=== PATIENT | male | born 1945 | race Caucasian/White ===

== ENCOUNTER 2021-12-14 10:47 | Outpatient (CLI) | payer MEDICARE, OTHER, SELFPAY ==
[2021-12-14 22:08] LABS: Albumin* 4.4 g/dL (3.3-5.0); Chloride* 103 mmol/L (96-114); Sodium* 138 mmol/L (135-149)
[2021-12-14 22:09] LABS: Potassium* 5.1 mmol/L (3.6-5.1)
[2021-12-14 22:10] LABS: Carbon Dioxide* 29 mmol/L (20-32); Cholesterol* 208 mg/dL (90-199); Creatinine* 1.2 mg/dL (0.5-1.5); Estimated Glomerular Filt Rate 63 ml/min
[2021-12-14 22:11] LABS: Alanine Aminotransferase* 28 U/L (4-50); Alkaline Phosphatase* 122 U/L (40-150); Aspartate Amino Transferase* 27 U/L (12-35); Bilirubin Total* 0.3 mg/dL (0.1-1.5); Blood Urea Nitrogen* 20 mg/dL (7-30); Calcium* 9.6 mg/dL (8.4-10.6); Glucose* 148 mg/dL (60-115); HDL Cholesterol* 37 mg/dL (>=40); LDL Cholesterol Calculated 103 mg/dL (<100); Total Protein* 7.1 g/dL (6.0-8.3); Triglycerides* 342 mg/dL (40-149)
[2021-12-14 22:47] LABS: Hepatitis C Virus Antibody* Negative (Negative)
== END 2021-12-14 10:48 | disposition home or self-care (01) ==
PROVIDERS: PCP Family Medicine; Visit Provider Family Medicine
DX: Z00.00 Encounter for general adult medical examination without abnormal findings (principal); E78.5 Hyperlipidemia, unspecified; I10 Essential (primary) hypertension; Z11.59 Encounter for screening for other viral diseases
CPT/HCPCS: 80053; 80061; 86803

== ENCOUNTER 2021-12-29 14:42 | Outpatient (CLI) | payer MEDICARE, OTHER, SELFPAY ==
[2021-12-29 21:38] LABS: Total Protein Urine 8 mg/dL
[2021-12-29 21:44] LABS: Creatinine Urine 48.9 mg/dL; Microalbumin Urine < 1 mg/dL
[2021-12-29 22:45] LABS: Microalbumin Creatinine Ratio 0 mg/g (0-30)
== END 2021-12-29 14:43 | disposition home or self-care (01) ==
PROVIDERS: PCP Family Medicine; Visit Provider Family Medicine
DX: E11.9 Type 2 diabetes mellitus without complications (principal)
CPT/HCPCS: 82043; 82570; 84156

== ENCOUNTER 2022-03-24 10:06 | Outpatient (CLI) | payer MEDICARE, SELFPAY ==
[2022-03-24 15:13] LABS: Albumin* 4.5 g/dL (3.3-5.0); Chloride* 106 mmol/L (96-114); Sodium* 141 mmol/L (135-149)
[2022-03-24 15:15] LABS: Bilirubin Total* 0.7 mg/dL (0.1-1.5); Carbon Dioxide* 30 mmol/L (20-32); Cholesterol* 181 mg/dL (90-199); Creatinine* 1.1 mg/dL (0.5-1.5); Estimated Glomerular Filt Rate 70 ml/min
[2022-03-24 15:16] LABS: Alanine Aminotransferase* 27 U/L (4-50); Alkaline Phosphatase* 97 U/L (40-150); Aspartate Amino Transferase* 30 U/L (12-35); Blood Urea Nitrogen* 19 mg/dL (7-30); Glucose* 124 mg/dL (60-115); Total Protein* 7.2 g/dL (6.0-8.3); Triglycerides* 182 mg/dL (40-149)
[2022-03-24 15:17] LABS: Calcium* 9.4 mg/dL (8.4-10.6); HDL Cholesterol* 37 mg/dL (>=40); LDL Cholesterol Calculated 108 mg/dL (<100)
[2022-03-24 16:08] LABS: Hepatitis C Virus Antibody* Negative (Negative)
== END 2022-03-24 10:07 | disposition home or self-care (01) ==
PROVIDERS: Visit Provider Family Medicine
DX: Z00.00 Encounter for general adult medical examination without abnormal findings (principal); E11.9 Type 2 diabetes mellitus without complications; I10 Essential (primary) hypertension; Z11.59 Encounter for screening for other viral diseases; Z13.6 Encounter for screening for cardiovascular disorders; R73.03 Prediabetes
CPT/HCPCS: 80053; 80061; 86803

== ENCOUNTER 2023-05-11 07:11 | Outpatient (CLI) | payer MEDICARE, SELFPAY | END 2023-05-11 07:12 | disposition home or self-care (01) | PROVIDERS: PCP Family Medicine; Visit Provider Family Medicine | DX: E11.9 Type 2 diabetes mellitus without complications (principal); E78.2 Mixed hyperlipidemia; I10 Essential (primary) hypertension | CPT/HCPCS: 80053; 80061; 82043; 82570 ==

== ENCOUNTER 2024-07-12 07:53 | Outpatient (CLI) | payer MEDICARE, SELFPAY | END 2024-07-12 07:54 | disposition home or self-care (01) | PROVIDERS: PCP Family Medicine; Visit Provider Family Medicine | DX: E78.5 Hyperlipidemia, unspecified (principal); I10 Essential (primary) hypertension | CPT/HCPCS: 80053; 80061; 82043; 82570 ==

== ENCOUNTER 2025-01-16 08:34 | Outpatient (CLI) | payer MEDICARE, SELFPAY | END 2025-01-16 08:35 | disposition home or self-care (01) | LOC: NFLDREF 01-20 03:41 | PROVIDERS: PCP Family Medicine; Referring Provider Family Medicine; Visit Provider Family Medicine | DX: E11.9 Type 2 diabetes mellitus without complications (principal); I10 Essential (primary) hypertension; E78.5 Hyperlipidemia, unspecified | CPT/HCPCS: 80053; 82043; 82570 ==